=== PATIENT | male | born 1995 | race Caucasian/White ===

== ENCOUNTER 2021-12-08 13:21 | Emergency (ER) | payer OTHER, SELFPAY ==
[2021-12-08 13:29] VITALS: BP 143/83; PULSE 52; RESP 16; TEMP 36.7; O2SAT 99
--- NOTE | 2021-12-08 13:33 | DI.US.S_ITS ---
PROCEDURE: US PERIPH VENOUS LOW EXTREM LT INDICATIONS: Pain, swelling TECHNIQUE: Real-time imaging, as well as color and pulse Doppler interrogation, were performed of the lower extremity deep veins from the inguinal ligament to the popliteal fossa. COMPARISON: None. FINDINGS: The common femoral, femoral and popliteal veins are normally compressible, and free of intraluminal thrombus. Color and pulse Doppler demonstrate normal phasic intraluminal flow. There is normal augmentation response to distal compression maneuver. IMPRESSION: No evidence of deep venous thrombosis, left lower extremity Approved by: Gregory Schwartz M.D. on 12/08/2021 at 14:36
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
[2021-12-08] MEDS: cephALEXin 250 MG CAPSULE 500 MG PO (20:01)
== END 2021-12-08 20:00 | disposition home or self-care (01) ==
PROVIDERS: Emergency Provider Emergency Medicine
DX: L03.116 Cellulitis of left lower limb (principal)
CPT/HCPCS: 93971; 99283